=== PATIENT | female | born 1980 | race Caucasian/White ===

== ENCOUNTER → 2023-06-24 08:17 | Outpatient (REF) | payer OTHER, SELFPAY | LOC: WDC 08:17 | PROVIDERS: ATTENDING PHYSICIAN Nurse Practitioner Family | DX: Z12.31 Encounter for screening mammogram for malignant neoplasm of breast (principal) | CPT/HCPCS: 77063; 77067 ==

== ENCOUNTER 2023-07-31 07:44 | Outpatient (RCR) | payer OTHER, SELFPAY ==
[2023-07-31 08:00] VITALS: BP 124/78
[2023-07-31] MEDS: INJECTAFER 265 MG IV (08:14)
[2023-07-31 08:45] VITALS: BP 136/66
== END 2023-08-03 13:39 | disposition home or self-care (01) ==
LOC: OID 07:44
PROVIDERS: ATTENDING PHYSICIAN Psychiatry & Neurology Neurology; FAMILY PHYSICIAN Nurse Practitioner Family
DX: D50.9 Iron deficiency anemia, unspecified (principal); F07.81 Postconcussional syndrome; G43.709 Chronic migraine without aura, not intractable, without status migrainosus; R90.89 Other abnormal findings on diagnostic imaging of central nervous system; R79.0 Abnormal level of blood mineral; E53.8 Deficiency of other specified B group vitamins
CPT/HCPCS: 96365; J1439

== ENCOUNTER 2023-08-11 05:18 | Emergency (ER) | payer SELFPAY ==
[2023-08-11 05:19] VITALS: BP 135/86
[2023-08-11 05:29] VITALS: BMI 33.5
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
[2023-08-11 06:00] VITALS: BP 130/78
== END 2023-08-11 06:07 | disposition home or self-care (01) ==
LOC: EMR 05:18
PROVIDERS: EMERGENCY PHYSICIAN Emergency Medicine; FAMILY PHYSICIAN Nurse Practitioner Family
DX: S00.83XA Contusion of other part of head, initial encounter (principal); W50.0XXA Accidental hit or strike by another person, initial encounter; E11.9 Type 2 diabetes mellitus without complications; E03.9 Hypothyroidism, unspecified; E78.5 Hyperlipidemia, unspecified; Y99.0 Civilian activity done for income or pay
CPT/HCPCS: 99282

== ENCOUNTER → 2023-08-21 08:12 | Outpatient (REF) | payer OTHER, SELFPAY | LOC: PAVMRI 08:12 | PROVIDERS: ATTENDING PHYSICIAN Psychiatry & Neurology Neurology; FAMILY PHYSICIAN Nurse Practitioner Family | DX: R90.89 Other abnormal findings on diagnostic imaging of central nervous system (principal) | CPT/HCPCS: 70553; A9575 ==